=== PATIENT | female | born 2000 | race Caucasian/White ===

== ENCOUNTER 2018-04-26 05:54 | Emergency (ER) | payer OTHER ==
[2018-04-26] MEDS: ACETAMINOPHEN 325 MG TAB PO (06:43)
[2018-04-26 06:59] LABS: ADD UMIC YES; UR ASCORBIC ACID NEGATIVE (NEGATIVE); UR BILIRUBIN (Dip) NEGATIVE (NEGATIVE); UR BLOOD (Dip) 3+ mg/dL (NEGATIVE); UR CLARITY SLIGHTLY CLOUDY (CLEAR); UR COLOR YELLOW (YELLOW); UR GLUCOSE (Dip) NEGATIVE (NEGATIVE); UR KETONES (Dip) TRACE mg/dL (NEGATIVE); UR LEUKOCYTE ESTERASE (Dip) NEGATIVE Leu/ul (NEGATIVE); UR MUCUS FEW /HPF (NONE SEEN); UR NITRITE (Dip) NEGATIVE (NEGATIVE); UR RBC 53 /HPF (0-5); UR SPECIFIC GRAVITY (Dip) 1.019 (1.003-1.030); UR TOTAL PROTEIN (Dip) NEGATIVE (NEGATIVE); UR UROBILINOGEN (Dip) NEGATIVE (NEGATIVE); UR WBC 3 /HPF (0-5)
== END 2018-04-26 07:48 | disposition home or self-care (01) ==
LOC: FTE 05:54
DX: B34.9 Viral infection, unspecified (principal)
CPT/HCPCS: 81001; 81025; 87400; 99283